=== PATIENT | male | born 1970 | race Caucasian/White ===

== ENCOUNTER 2019-03-07 13:13 | Day surgery (SDC) | payer MEDICARE ==
[2019-03-07] MEDS ORDERED: Marcaine 0.5% SDV 10 ML IJ ONE (13:14)
[2019-03-07] MEDS ORDERED: DIPRIVAN 200 MG/20 ML IV ONE (14:01)
[2019-03-07] MEDS ORDERED: Ketamine HCl 50 MG/ML ONE (14:01)
[2019-03-07] MEDS ORDERED: Versed 2 MG/2 ML Injection ONE (14:11)
[2019-03-07] MEDS ORDERED: Lactated Ringers 1,000 ML IV ONE (14:35)
--- NOTE | 2019-03-07 16:03 | XRAY ---
Indication: Right genicular nerve ablation. Intraoperative fluoroscopy was provided for 11 seconds. 2 digital spot images submitted for interpretation demonstrates anterior needle tips projecting adjacent to the medial/lateral left femur condyles and medial tibial plateau. Correlate with intraoperative findings/report.
--- NOTE | 2019-03-07 16:17 | XRAY ---
11 seconds fluoroscopy time in surgery for right genicular nerve ablation.
== END 2019-03-07 14:37 | disposition home or self-care (01) ==
LOC: SDC-PAIN 13:13
PROVIDERS: ATTEND Psychiatry & Neurology Pain Medicine
DX: M17.11 Unilateral primary osteoarthritis, right knee (principal); E78.5 Hyperlipidemia, unspecified; I10 Essential (primary) hypertension; N19 Unspecified kidney failure; G47.30 Sleep apnea, unspecified; I34.1 Nonrheumatic mitral (valve) prolapse; K21.9 Gastro-esophageal reflux disease without esophagitis; Z79.899 Other long term (current) drug therapy
CPT/HCPCS: 64450; 73560; 77002; J2250; J2704

== ENCOUNTER 2019-04-04 11:43 | Day surgery (SDC) | payer MEDICARE ==
[2019-04-04] MEDS ORDERED: Depo-Medrol 40 MG/ML IM ONE (11:44)
[2019-04-04] MEDS ORDERED: Sodium Chloride 0.9(Preservative Free) 10 ML IJ ONE (11:44)
[2019-04-04] MEDS ORDERED: DIPRIVAN 200 MG/20 ML IV ONE (13:16)
[2019-04-04] MEDS ORDERED: Ketamine HCl 50 MG/ML ONE (13:16)
--- NOTE | 2019-04-04 15:23 | XRAY ---
Indication: Right L4-S1 transforaminal CALLIE. Intraoperative fluoroscopy was provided for 29 seconds. 4 digital spot images submitted for interpretation demonstrates posterior needle tips projecting over the expected course of the right L4 and L5 nerve roots. Small amount of contrast injected for needle tip placement. Correlate with intraoperative findings/report.
--- NOTE | 2019-04-04 15:27 | XRAY ---
29 seconds fluoroscopy time in surgery for right L4-S1 CALLIE.
[2019-04-04] MEDS ORDERED: Lactated Ringers 1,000 ML IV ONE (16:17)
== END 2019-04-04 13:43 | disposition home or self-care (01) ==
LOC: SDC-PAIN 11:43
PROVIDERS: ATTEND Psychiatry & Neurology Pain Medicine
DX: M54.16 Radiculopathy, lumbar region (principal); I10 Essential (primary) hypertension; E78.5 Hyperlipidemia, unspecified; G47.30 Sleep apnea, unspecified; N19 Unspecified kidney failure; K21.9 Gastro-esophageal reflux disease without esophagitis; Z79.899 Other long term (current) drug therapy
CPT/HCPCS: 72100; 77003; J1030; J2704

== ENCOUNTER 2019-04-11 12:43 | Day surgery (SDC) | payer MEDICARE ==
[2019-04-11] MEDS ORDERED: Xylocaine 1% Vial 30 ML PF IJ ONE (12:44)
[2019-04-11] MEDS ORDERED: Depo-Medrol 40 MG/ML IM ONE (12:44)
[2019-04-11] MEDS ORDERED: Marcaine 0.5% SDV 10 ML IJ ONE (12:44)
[2019-04-11] MEDS ORDERED: Ketamine HCl 50 MG/ML ONE (14:17)
[2019-04-11] MEDS ORDERED: DIPRIVAN 200 MG/20 ML IV ONE ×3 (14:17→14:39)
[2019-04-11] MEDS ORDERED: Lactated Ringers 1,000 ML IV ONE (15:19)
--- NOTE | 2019-04-11 15:22 | XRAY ---
45 seconds fluoroscopy time in surgery for right genicular nerve ablation.
--- NOTE | 2019-04-11 15:24 | XRAY ---
Indication: Right genicular nerve ablation. Intraoperative fluoroscopy was provided for 45 seconds. 2 digital spot images submitted for interpretation demonstrates anterior needle tips projecting medial/lateral supracondylar and medial tibial plateau of the right knee. Correlate with intraoperative findings/report.
== END 2019-04-11 15:05 | disposition home or self-care (01) ==
LOC: SDC-PAIN 12:43
PROVIDERS: ATTEND Psychiatry & Neurology Pain Medicine
DX: M17.11 Unilateral primary osteoarthritis, right knee (principal); I10 Essential (primary) hypertension; E78.5 Hyperlipidemia, unspecified; K21.9 Gastro-esophageal reflux disease without esophagitis; N19 Unspecified kidney failure; G47.30 Sleep apnea, unspecified; I34.1 Nonrheumatic mitral (valve) prolapse; F41.8 Other specified anxiety disorders; Z79.899 Other long term (current) drug therapy
CPT/HCPCS: 64640; 73560; 77002; J1030; J2001; J2704

== ENCOUNTER 2019-10-31 10:38 | Day surgery (SDC) | payer MEDICARE ==
[2019-10-31] MEDS ORDERED: Depo-Medrol 40 MG/ML IM ONE (10:39)
[2019-10-31] MEDS ORDERED: Marcaine 0.5% SDV 10 ML IM ONE (10:39)
[2019-10-31] MEDS ORDERED: Xylocaine 1% Vial 30 ML PF IJ ONE (10:39)
[2019-10-31] MEDS ORDERED: DIPRIVAN 200 MG/20 ML IV ONE (13:04)
[2019-10-31] MEDS ORDERED: Ketamine HCl 50 MG/ML ONE (13:04)
[2019-10-31] MEDS ORDERED: SUBLIMAZE 100 MCG/2 ML ONE (13:06)
--- NOTE | 2019-10-31 14:23 | XRAY ---
Indication: Right knee genicular nerve ablation. Intraoperative fluoroscopy was provided for 15 seconds. 2 digital spot images submitted for interpretation demonstrates anterior needle tips projecting medial/lateral supracondylar and medial tibial plateau of the right knee. Correlate with intraoperative findings/report.
--- NOTE | 2019-10-31 14:26 | XRAY ---
Indication: Left knee genicular nerve ablation. Intraoperative fluoroscopy was provided for 13 seconds. 2 digital spot images submitted for interpretation demonstrates anterior needle tips projecting medial/lateral supracondylar and medial tibial plateau of the left knee. Correlate with intraoperative findings/report. Incidental total knee arthroplasty.
[2019-10-31] MEDS ORDERED: Lactated Ringers 1,000 ML IV ONE (14:54)
--- NOTE | 2019-10-31 15:07 | XRAY ---
13 seconds of fluoroscopy was used in surgery for a left genicular nerve block.
--- NOTE | 2019-10-31 15:07 | XRAY ---
15 seconds of fluoroscopy was in surgery for a right genicular nerve ablation.
== END 2019-10-31 13:41 | disposition home or self-care (01) ==
LOC: SDC-PAIN 10:38
PROVIDERS: ATTEND Psychiatry & Neurology Pain Medicine
DX: M17.0 Bilateral primary osteoarthritis of knee (principal); I10 Essential (primary) hypertension; E78.5 Hyperlipidemia, unspecified; K21.9 Gastro-esophageal reflux disease without esophagitis; N19 Unspecified kidney failure; I34.1 Nonrheumatic mitral (valve) prolapse; G47.30 Sleep apnea, unspecified; Z79.899 Other long term (current) drug therapy
CPT/HCPCS: 64454; 64624; 73560; 77002; J1030; J2001; J2704; J3010

== ENCOUNTER 2020-06-18 08:42 | Day surgery (SDC) | payer MEDICARE ==
[2020-06-18] MEDS ORDERED: Xylocaine 1% Vial 30 ML PF IJ ONE (08:43)
[2020-06-18] MEDS ORDERED: BUPIVACAINE 0.5% VIAL IJ ONE (08:43)
[2020-06-18] MEDS ORDERED: Depo-Medrol 40 MG/ML IM ONE (08:43)
[2020-06-18] MEDS ORDERED: Ketamine HCl 50 MG/ML ONE (11:07)
[2020-06-18] MEDS ORDERED: DIPRIVAN 200 MG/20 ML IV ONE (11:07)
--- NOTE | 2020-06-18 12:13 | XRAY ---
21 seconds fluoroscopy time in surgery for right genicular nerve ablation.
--- NOTE | 2020-06-18 12:13 | XRAY ---
Indication: Right knee genicular nerve ablation. Intraoperative fluoroscopy was provided for 21 seconds. 3 digital spot images of the right knee submitted for interpretation demonstrates anterior needle tips projecting medial/lateral supracondylar and medial tibial plateau. Correlate with intraoperative findings/report.
[2020-06-18] MEDS ORDERED: Lactated Ringers 1,000 ML IV ONE (14:39)
== END 2020-06-18 11:43 | disposition home or self-care (01) ==
LOC: SDC-PAIN 08:42
PROVIDERS: ATTEND Psychiatry & Neurology Pain Medicine
DX: M17.11 Unilateral primary osteoarthritis, right knee (principal); I10 Essential (primary) hypertension; N19 Unspecified kidney failure; G47.30 Sleep apnea, unspecified; K21.9 Gastro-esophageal reflux disease without esophagitis; E78.5 Hyperlipidemia, unspecified; I34.1 Nonrheumatic mitral (valve) prolapse; Z79.899 Other long term (current) drug therapy
CPT/HCPCS: 64624; 73560; 77002; 82947; J1030; J2001; J2704

== ENCOUNTER 2020-07-09 08:12 | Day surgery (SDC) | payer MEDICARE ==
[2020-07-09] MEDS ORDERED: Depo-Medrol 40 MG/ML IM ONE (08:13)
[2020-07-09] MEDS ORDERED: Sodium Chloride 0.9(Preservative Free) 10 ML IJ ONE (08:13)
[2020-07-09] MEDS ORDERED: DIPRIVAN 200 MG/20 ML IV ONE (10:36)
[2020-07-09] MEDS ORDERED: Ketamine HCl 50 MG/ML ONE (10:36)
--- NOTE | 2020-07-09 11:04 | XRAY ---
42 seconds fluoroscopy time in surgery for right L4-S1 transforaminal CALLIE.
--- NOTE | 2020-07-09 11:13 | XRAY ---
Indication: Right L4-S1 transforaminal CALLIE. Intraoperative fluoroscopy provided for 42 seconds. 2 digital spot images submitted for interpretation demonstrates posterior needle tips projecting over the expected right L4 and L5 nerve roots. Small amount of contrast injected for needle tip placement. Correlate with intraoperative findings/report.
[2020-07-09] MEDS ORDERED: Lactated Ringers 1,000 ML IV ONE (16:33)
== END 2020-07-09 11:03 | disposition home or self-care (01) ==
LOC: SDC-PAIN 08:12
PROVIDERS: ATTEND Psychiatry & Neurology Pain Medicine
DX: M54.16 Radiculopathy, lumbar region (principal); I10 Essential (primary) hypertension; E78.5 Hyperlipidemia, unspecified; K21.9 Gastro-esophageal reflux disease without esophagitis; N19 Unspecified kidney failure; I34.1 Nonrheumatic mitral (valve) prolapse; G47.30 Sleep apnea, unspecified; Z79.899 Other long term (current) drug therapy
CPT/HCPCS: 64483; 64484; 72100; 77003; 82947; J1030; J2704; Q9966

== ENCOUNTER 2020-10-15 06:39 | Day surgery (SDC) | payer MEDICARE ==
[2020-10-15] MEDS ORDERED: Depo-Medrol 40 MG/ML IM ONE (06:40)
[2020-10-15] MEDS ORDERED: LIDOCAINE HCL 2% 100 MG/5 ML IJ ONE (06:40)
[2020-10-15] MEDS ORDERED: DIPRIVAN 200 MG/20 ML IV ONE (08:37)
--- NOTE | 2020-10-15 10:38 | XRAY ---
Indication: Bilateral L4-S1 MBB. Intraoperative fluoroscopy provided for 8 seconds. Single digital spot image submitted for interpretation demonstrates posterior needle tips projecting over the expected left and right L4-S1 nerve roots. Correlate with intraoperative findings/report.
--- NOTE | 2020-10-15 12:07 | XRAY ---
8 seconds fluoroscopy time in surgery for bilateral L4-S1 MBB.
[2020-10-15] MEDS ORDERED: Lactated Ringers 1,000 ML IV ONE (15:53)
== END 2020-10-15 09:20 | disposition home or self-care (01) ==
LOC: SDC-PAIN 06:39
PROVIDERS: ATTEND Psychiatry & Neurology Pain Medicine
DX: M47.816 Spondylosis without myelopathy or radiculopathy, lumbar region (principal); F32.9 Major depressive disorder, single episode, unspecified; M19.90 Unspecified osteoarthritis, unspecified site; K21.9 Gastro-esophageal reflux disease without esophagitis; E66.9 Obesity, unspecified; N19 Unspecified kidney failure; E78.5 Hyperlipidemia, unspecified; I10 Essential (primary) hypertension; G47.30 Sleep apnea, unspecified; Z79.899 Other long term (current) drug therapy
CPT/HCPCS: 64493; 64494; 72020; 77002; 82947; J1030; J2704

== ENCOUNTER 2020-11-19 10:20 | Day surgery (SDC) | payer MEDICARE ==
[2020-11-19] MEDS ORDERED: Depo-Medrol 40 MG/ML IM ONE (10:21)
[2020-11-19] MEDS ORDERED: BUPIVACAINE 0.5% VIAL IJ ONE (10:21)
[2020-11-19] MEDS ORDERED: DIPRIVAN 200 MG/20 ML IV ONE (12:17)
--- NOTE | 2020-11-19 13:31 | XRAY ---
Indication: Bilateral L4-S1 MBB. Intraoperative fluoroscopy provided for 13 seconds. Single digital spot image submitted for interpretation demonstrates posterior needle tips projecting over the expected left and right L4-S1 nerve roots. Correlate with intraoperative findings/report.
--- NOTE | 2020-11-19 13:33 | XRAY ---
13 seconds fluoroscopy time in surgery for bilateral L4-S1 MBB.
[2020-11-19] MEDS ORDERED: Lactated Ringers 1,000 ML IV ONE (15:32)
== END 2020-11-19 12:43 | disposition home or self-care (01) ==
LOC: SDC-PAIN 10:20
PROVIDERS: ATTEND Psychiatry & Neurology Pain Medicine
DX: M47.816 Spondylosis without myelopathy or radiculopathy, lumbar region (principal); I10 Essential (primary) hypertension; E11.9 Type 2 diabetes mellitus without complications; E78.5 Hyperlipidemia, unspecified; G47.30 Sleep apnea, unspecified; I34.1 Nonrheumatic mitral (valve) prolapse; Z79.899 Other long term (current) drug therapy
CPT/HCPCS: 64493; 64494; 72020; 77002; 82947; J1030; J2704

== ENCOUNTER 2020-12-10 10:08 | Day surgery (SDC) | payer MEDICARE ==
[2020-12-10] MEDS ORDERED: Xylocaine 1% Vial 30 ML PF IJ ONE (10:09)
[2020-12-10] MEDS ORDERED: Depo-Medrol 40 MG/ML IM ONE (10:09)
[2020-12-10] MEDS ORDERED: BUPIVACAINE 0.5% VIAL IJ ONE (10:09)
[2020-12-10] MEDS ORDERED: Lactated Ringers 1,000 ML IV ONE (11:43)
--- NOTE | 2020-12-10 13:37 | XRAY ---
29 seconds fluoroscopy time in surgery for right L4-S1 RFA.
--- NOTE | 2020-12-10 13:39 | XRAY ---
Indication: Right L4-S1 RFA. Intraoperative fluoroscopy provided for 29 seconds. 3 digital spot image submitted for interpretation demonstrates posterior needle tips projecting over the expected right L4-S1 nerve roots. Correlate with intraoperative findings/report.
== END 2020-12-10 12:30 | disposition home or self-care (01) ==
LOC: SDC-PAIN 10:08
PROVIDERS: ATTEND Psychiatry & Neurology Pain Medicine
DX: M47.816 Spondylosis without myelopathy or radiculopathy, lumbar region (principal); E11.9 Type 2 diabetes mellitus without complications; Z79.899 Other long term (current) drug therapy
CPT/HCPCS: 64635; 64636; 72100; 77002; 82947; J1030; J2001

== ENCOUNTER 2020-12-17 07:28 | Day surgery (SDC) | payer MEDICARE ==
[2020-12-17] MEDS ORDERED: Xylocaine 1% Vial 30 ML PF IJ ONE (07:29)
[2020-12-17] MEDS ORDERED: Depo-Medrol 40 MG/ML IM ONE (07:29)
[2020-12-17] MEDS ORDERED: BUPIVACAINE 0.5% VIAL IJ ONE (07:29)
[2020-12-17] MEDS ORDERED: DIPRIVAN 200 MG/20 ML IV ONE (09:14)
[2020-12-17] MEDS ORDERED: Ketamine HCl 50 MG/ML ONE (09:26)
[2020-12-17] MEDS ORDERED: Lactated Ringers 1,000 ML IV ONE (15:53)
--- NOTE | 2020-12-18 11:52 | XRAY ---
29 seconds of fluoroscopy was used in surgery for a left L4-S1 RFA.
--- NOTE | 2020-12-20 23:40 | XRAY ---
Indication: Left L4-L5, L5-S1 RFA. Intraoperative fluoroscopy was provided for 29 seconds. 3 digital spot images submitted for interpretation demonstrate posterior needle tips projected over the expected course of the left L4-S1 nerve roots. Correlate with intraoperative findings/report.
== END 2020-12-17 09:45 | disposition home or self-care (01) ==
LOC: SDC-PAIN 07:28
PROVIDERS: ATTEND Psychiatry & Neurology Pain Medicine
DX: M47.816 Spondylosis without myelopathy or radiculopathy, lumbar region (principal); E11.9 Type 2 diabetes mellitus without complications; Z79.899 Other long term (current) drug therapy
CPT/HCPCS: 64635; 64636; 72100; 77002; 82947; J1030; J2001; J2704

== ENCOUNTER 2021-08-26 06:11 | Day surgery (SDC) | payer MEDICARE ==
[2021-08-26] MEDS ORDERED: Decadron 4 MG INJ IV ONE (06:12)
[2021-08-26] MEDS ORDERED: Depo-Medrol 40 MG/ML IM ONE (06:12)
[2021-08-26] MEDS ORDERED: Sodium Chloride 0.9(Preservative Free) 10 ML IJ ONE (06:12)
[2021-08-26] MEDS ORDERED: Xylocaine 1% Vial 30 ML PF IJ ONE (06:12)
[2021-08-26] MEDS ORDERED: DIPRIVAN 200 MG/20 ML IV ONE (08:17)
[2021-08-26] MEDS ORDERED: Lactated Ringers 1,000 ML IV ONE (08:46)
--- NOTE | 2021-08-26 09:26 | XRAY ---
Indication: Right L4-S1 transforaminal CALLIE. Intraoperative fluoroscopy provided for 28 seconds. 4 digital spot image submitted for interpretation demonstrates posterior needle tips projecting over the expected right L4 and L5 nerve roots. Small amount of contrast injected for needle tip placement. Correlate with intraoperative findings/report.
--- NOTE | 2021-08-26 09:26 | XRAY ---
Indication: Right piriformis injection. Intraoperative fluoroscopy provided for 22 seconds. Single digital spot image submitted for interpretation demonstrates posterior needle tip projecting over the expected right piriformis muscle. Small amount of contrast injected for needle tip placement. Correlate with intraoperative findings/report.
--- NOTE | 2021-08-26 10:13 | XRAY ---
22 seconds fluoroscopy time in surgery for injection of the right piriformis muscle.
--- NOTE | 2021-08-26 10:13 | XRAY ---
28 seconds fluoroscopy time in surgery for right L4-S1 transforaminal CALLIE.
== END 2021-08-26 08:52 | disposition home or self-care (01) ==
LOC: SDC-PAIN 06:11
PROVIDERS: ATTEND Psychiatry & Neurology Pain Medicine
DX: M47.816 Spondylosis without myelopathy or radiculopathy, lumbar region (principal); E11.9 Type 2 diabetes mellitus without complications; I10 Essential (primary) hypertension; Z79.899 Other long term (current) drug therapy
CPT/HCPCS: 20552; 64483; 64484; 72020; 72100; 77002; 77003; 82947; J1030; J1100; J2001; J2704; Q9966

== ENCOUNTER 2021-09-09 07:26 | Day surgery (SDC) | payer MEDICARE ==
[2021-09-09] MEDS ORDERED: Depo-Medrol 40 MG/ML IM ONE (07:27)
[2021-09-09] MEDS ORDERED: Sodium Chloride 0.9(Preservative Free) 10 ML IJ ONE (07:27)
[2021-09-09] MEDS ORDERED: Lactated Ringers 1,000 ML IV ONE (09:22)
[2021-09-09] MEDS ORDERED: DIPRIVAN 200 MG/20 ML IV ONE (09:27)
--- NOTE | 2021-09-09 10:14 | XRAY ---
Indication: Caudal CALLIE. Intraoperative fluoroscopy provided for 17 seconds. 2 digital spot images submitted for interpretation demonstrates caudal needle tip projecting mid sacrum. Small amount of contrast injected for needle tip placement. Correlate with intraoperative findings/report.
--- NOTE | 2021-09-09 11:36 | XRAY ---
17 seconds fluoroscopy time in surgery for caudal CALLIE.
== END 2021-09-09 09:58 | disposition home or self-care (01) ==
LOC: SDC-PAIN 07:26
PROVIDERS: ATTEND Psychiatry & Neurology Pain Medicine
DX: M54.16 Radiculopathy, lumbar region (principal); I10 Essential (primary) hypertension; E11.9 Type 2 diabetes mellitus without complications; Z79.899 Other long term (current) drug therapy
CPT/HCPCS: 62323; 72100; 77003; 82947; J1030; J2704; Q9966

== ENCOUNTER 2021-12-16 06:19 | Day surgery (SDC) | payer MEDICARE ==
[2021-12-16] MEDS ORDERED: Marcaine Mpf 0.5% Vial 30 Ml IJ ONE (06:20)
[2021-12-16] MEDS ORDERED: DIPRIVAN 200 MG/20 ML IV ONE (08:04)
[2021-12-16] MEDS ORDERED: Lactated Ringers 1,000 ML IV ONE (09:22)
--- NOTE | 2021-12-16 11:38 | XRAY ---
Indication: Right knee genicular nerve block Intraoperative fluoroscopy provided for 13 seconds. 3 digital spot images of the right knee submitted for interpretation demonstrates demonstrates anterior needle tips projecting medial/lateral supracondylar and medial tibial plateau. Correlate with intraoperative findings/report.
--- NOTE | 2021-12-16 12:00 | XRAY ---
13 seconds fluoroscopy time in surgery for genicular nerve block of the right knee.
== END 2021-12-16 08:27 | disposition home or self-care (01) ==
LOC: SDC-PAIN 06:19
PROVIDERS: ATTEND Psychiatry & Neurology Pain Medicine
DX: M17.11 Unilateral primary osteoarthritis, right knee (principal); E11.9 Type 2 diabetes mellitus without complications; Z79.899 Other long term (current) drug therapy
CPT/HCPCS: 64454; 73560; 77002; 82947; J2704

== ENCOUNTER 2022-04-28 06:02 | Day surgery (SDC) | payer MEDICARE ==
[2022-04-28] MEDS ORDERED: Depo-Medrol 40 MG/ML IM ONE (06:03)
[2022-04-28] MEDS ORDERED: XYLOCAINE-MPF 1% 5ML SDV IJ ONE (06:03)
[2022-04-28] MEDS ORDERED: BUPIVACAINE 0.5% VIAL IJ ONE (06:03)
[2022-04-28] MEDS ORDERED: DIPRIVAN 200 MG/20 ML IV ONE ×2 (07:59→08:24)
--- NOTE | 2022-04-28 09:55 | XRAY ---
Indication: Right knee genicular nerve ablation. Intraoperative fluoroscopy provided for 32 seconds. 4 digital spot images right knee submitted for interpretation demonstrates anterior needle tips projecting medial/lateral supracondylar and medial tibial plateau. Correlate with intraoperative findings/report.
--- NOTE | 2022-04-28 09:55 | XRAY ---
32 seconds fluoroscopy time in surgery for genicular nerve abaltion of the right knee.
[2022-04-28] MEDS ORDERED: Lactated Ringers 1,000 ML IV ONE (10:21)
== END 2022-04-28 08:50 | disposition home or self-care (01) ==
LOC: SDC-PAIN 06:02
PROVIDERS: ATTEND Psychiatry & Neurology Pain Medicine
DX: M17.11 Unilateral primary osteoarthritis, right knee (principal); Z79.899 Other long term (current) drug therapy
CPT/HCPCS: 64624; 73560; 77002; 82947; J1030; J2704

== ENCOUNTER 2022-09-01 06:50 | Day surgery (SDC) | payer MEDICARE ==
[2022-09-01] MEDS ORDERED: Depo-Medrol 40 MG/ML IM ONE (06:51)
[2022-09-01] MEDS ORDERED: BUPIVACAINE 0.5% VIAL IJ ONE (06:51)
[2022-09-01] MEDS ORDERED: LIDOCAINE HCL 1% 50 MG/5 ML VL PF IJ ONE (06:51)
[2022-09-01] MEDS ORDERED: DIPRIVAN 200 MG/20 ML IV ONE (08:53)
[2022-09-01] MEDS ORDERED: Versed 2 MG/2 ML Injection ONE (08:53)
--- NOTE | 2022-09-01 11:25 | XRAY ---
Indication: Left L4-S1 RFA. Intraoperative fluoroscopy provided 21 seconds. 4 digital spot image submitted for interpretation demonstrates posterior needle tips projecting over the expected left L4-S1 nerve roots. Correlate with intraoperative findings/report.
--- NOTE | 2022-09-01 11:41 | XRAY ---
21 seconds of fluoroscopy was used in surgery for a left L4-S1 RFA.
[2022-09-01] MEDS ORDERED: Lactated Ringers 1,000 ML IV ONE (12:20)
== END 2022-09-01 09:30 | disposition home or self-care (01) ==
LOC: SDC-PAIN 06:50
PROVIDERS: ATTEND Psychiatry & Neurology Pain Medicine
DX: M47.817 Spondylosis without myelopathy or radiculopathy, lumbosacral region (principal); E11.9 Type 2 diabetes mellitus without complications; Z79.899 Other long term (current) drug therapy
CPT/HCPCS: 64635; 64636; 72100; 77002; 82947; J1030; J2001; J2250; J2704

== ENCOUNTER 2022-09-08 06:48 | Day surgery (SDC) | payer MEDICARE ==
[2022-09-08] MEDS ORDERED: Depo-Medrol 40 MG/ML IM ONE (06:49)
[2022-09-08] MEDS ORDERED: BUPIVACAINE 0.5% VIAL IJ ONE (06:49)
[2022-09-08] MEDS ORDERED: LIDOCAINE HCL 1% 50 MG/5 ML VL PF IJ ONE (06:49)
[2022-09-08] MEDS ORDERED: DIPRIVAN 200 MG/20 ML IV ONE (08:41)
--- NOTE | 2022-09-08 12:22 | XRAY ---
Indication: Right L4-S1 RFA. Intraoperative fluoroscopy provided for 23 seconds. 3 digital spot images submitted for interpretation demonstrates posterior needle tips projecting over the expected right L4-S1 nerve roots. Correlate with intraoperative findings/report.
--- NOTE | 2022-09-08 12:40 | XRAY ---
23 seconds of fluoroscopy was used in surgery for a right L4-S1 RFA.
[2022-09-08] MEDS ORDERED: Lactated Ringers 1,000 ML IV ONE (13:51)
== END 2022-09-08 09:15 | disposition home or self-care (01) ==
LOC: SDC-PAIN 06:48
PROVIDERS: ATTEND Psychiatry & Neurology Pain Medicine
DX: M47.816 Spondylosis without myelopathy or radiculopathy, lumbar region (principal); E11.9 Type 2 diabetes mellitus without complications; Z79.899 Other long term (current) drug therapy
CPT/HCPCS: 64635; 64636; 72100; 77002; 82947; J1030; J2001; J2704

== ENCOUNTER 2023-03-23 15:07 | Day surgery (SDC) | payer MEDICARE ==
[2023-03-23] MEDS ORDERED: LIDOCAINE HCL 1% 50 MG/5 ML VL PF IJ ONE (15:08)
[2023-03-23] MEDS ORDERED: BUPIVACAINE 0.5% VIAL IJ ONE (15:08)
[2023-03-23] MEDS ORDERED: Depo-Medrol 40 MG/ML IM ONE (15:08)
--- NOTE | 2023-03-23 20:57 | XRAY ---
Indication: Left SI joint injection. Intraoperative fluoroscopy provided for 9 seconds. 2 digital spot image submitted for interpretation demonstrates posterior needle tip projecting over left SI joint. Correlate with intraoperative findings/report.
--- NOTE | 2023-03-24 08:40 | XRAY ---
9 seconds of fluoroscopy was used in surgery for a left SI joint injection.
== END 2023-03-23 19:40 | disposition home or self-care (01) ==
LOC: SDC-PAIN 15:07
PROVIDERS: ATTEND Psychiatry & Neurology Pain Medicine
DX: M46.1 Sacroiliitis, not elsewhere classified (principal); M79.18 Myalgia, other site; E11.9 Type 2 diabetes mellitus without complications; Z79.899 Other long term (current) drug therapy
CPT/HCPCS: 20553; 27096; 72170; 77002; 82947; G0260; J1030; J2001

== ENCOUNTER 2024-01-04 06:26 | Day surgery (SDC) | payer MEDICARE ==
[2024-01-04] MEDS ORDERED: Depo-Medrol 40 MG/ML IM ONE (06:27)
[2024-01-04] MEDS ORDERED: Sodium Chloride 0.9(Preservative Free) 10 ML IJ ONE (06:27)
[2024-01-04] MEDS ORDERED: Reglan 10 MG/2 ML ONE (07:36)
[2024-01-04] MEDS ORDERED: Pepcid 20 MG VIAL IV ONE (07:36)
[2024-01-04] MEDS ORDERED: DIPRIVAN 200 MG/20 ML IV ONE (08:57)
[2024-01-04] MEDS ORDERED: DEXMEDETOMIDINE 80 MCG/20ML-NS IV ONE (08:58)
[2024-01-04] MEDS ORDERED: Lactated Ringers 1,000 ML IV ONE (09:29)
--- NOTE | 2024-01-04 10:10 | XRAY ---
Indication: Caudal CALLIE. Intraoperative fluoroscopy provided for 14 seconds. 2 digital spot images submitted for interpretation demonstrates caudal needle tip projecting mid sacrum. Small amount of contrast injected for needle tip placement. Correlate with intraoperative findings/report.
--- NOTE | 2024-01-04 10:46 | XRAY ---
14 seconds of fluoroscopy was used in surgery for a caudal CALLIE.
== END 2024-01-04 09:22 ==
LOC: SDC-PAIN 06:26
PROVIDERS: ATTEND Psychiatry & Neurology Pain Medicine
DX: M54.16 Radiculopathy, lumbar region (principal); E11.9 Type 2 diabetes mellitus without complications
CPT/HCPCS: 62323; 72220; 77003; 82947; J2704; Q9966

== ENCOUNTER 2024-07-04 07:20 | Day surgery (SDC) | payer MEDICARE ==
[2024-07-04] MEDS ORDERED: methylPREDNISolone acetate IM ONE (07:21)
[2024-07-04] MEDS ORDERED: dexAMETHasone sodium phosphate IJ ONE (07:21)
[2024-07-04] MEDS ORDERED: Sodium Chloride 0.9(Preservative Free) 10 ML IJ ONE (07:21)
[2024-07-04] MEDS ORDERED: LIDOCAINE HCL 1% AMPUL 5 ML IJ ONE (07:21)
[2024-07-04] MEDS ORDERED: Pepcid 20 MG VIAL IV ONE (07:46)
[2024-07-04] MEDS ORDERED: Reglan 10 MG/2 ML ONE (07:46)
[2024-07-04] MEDS ORDERED: propofoL IV ONE (09:15)
--- NOTE | 2024-07-04 10:27 | XRAY ---
Indication: Caudal CALLIE. Intraoperative fluoroscopy provided for 14 second. 2 digital spot image submitted for interpretation demonstrates caudal needle tip projecting mid sacrum. Small amount of contrast injected for needle tip placement. Correlate with intraoperative findings/report.
--- NOTE | 2024-07-04 10:28 | XRAY ---
Indication: Right piriformis injection. Intraoperative fluoroscopy provided for 6 second. Single digital spot image submitted for interpretation demonstrates posterior needle tip projecting over right piriformis. Small amount of contrast injected for needle tip placement. Correlate with intraoperative findings/report.
--- NOTE | 2024-07-04 10:30 | XRAY ---
14 seconds of fluoroscopy was used in surgery for a caudal CALLIE.
--- NOTE | 2024-07-04 10:31 | XRAY ---
6 seconds of fluoroscopy was used in surgery for a right piriformis injection.
== END 2024-07-04 09:50 | disposition home or self-care (01) ==
LOC: SDC-PAIN 07:20
PROVIDERS: ATTEND Psychiatry & Neurology Pain Medicine
DX: M54.16 Radiculopathy, lumbar region (principal); E11.9 Type 2 diabetes mellitus without complications; M79.18 Myalgia, other site
CPT/HCPCS: 20552; 62323; 72170; 72220; 77002; 77003; 82947; J1010; J1100; J2704; Q9966

== ENCOUNTER 2025-03-27 07:04 | Day surgery (SDC) | payer MEDICARE ==
[2025-03-27] MEDS ORDERED: BUPIVACAINE 0.5% VIAL IJ ONE (07:05)
[2025-03-27] MEDS ORDERED: methylPREDNISolone acetate IM ONE (07:05)
[2025-03-27] MEDS ORDERED: D50W 50 ml Abboject IV ONE (07:05)
[2025-03-27] MEDS ORDERED: propofoL IV ONE (10:01)
[2025-03-27] MEDS ORDERED: Lactated Ringers 1,000 ML IV ONE (11:26)
--- NOTE | 2025-03-27 12:14 | XRAY ---
18 seconds of fluoroscopy was used in surgery for a left intra-articular shoulder and subacromial bursa injection.
--- NOTE | 2025-03-27 12:20 | XRAY ---
Indication: Left shoulder and subacromial bursa injection. Intraoperative fluoroscopy provided for 18 seconds. 2 digital spot image submitted for interpretation demonstrates needle tip projecting over left glenohumeral joint superiorly. 2nd needle tip subacromial. Small amount of contrast injected for needle tip placement. Correlate with intraoperative findings/report.
== END 2025-03-27 10:33 | disposition home or self-care (01) ==
LOC: SDC-PAIN 07:04
PROVIDERS: ATTEND Psychiatry & Neurology Pain Medicine
DX: M19.012 Primary osteoarthritis, left shoulder (principal); E11.9 Type 2 diabetes mellitus without complications; M75.52 Bursitis of left shoulder